=== PATIENT | male | born 1985 | race Caucasian/White ===

== ENCOUNTER → 2017-02-20 | Outpatient (CLI) | payer OTHER ==
[2014-11-02 02:43] VITALS: BP 133/75
--- NOTE | 2017-02-20 14:05 | RAD ---
Indication back pain for 3 days. AP and lateral views of the thoracic spine were obtained. There is very minimal scoliosis. Vertebral height and alignment are normal. No significant bony finding is seen. IMPRESSION: No significant bony finding seen
== END | disposition home or self-care (01) ==
LOC: DXRADRC 11:34
PROVIDERS: ATTEND Physician Assistant
DX: M54.6 Pain in thoracic spine (principal)
CPT/HCPCS: 72072

== ENCOUNTER 2021-05-07 00:22 | Emergency (ER) | payer OTHER ==
[~2021-05-07] VITALS: Ht 180.3 cm; Wt 79.1 kg
--- NOTE | 2021-05-07 00:33 | PHYS DOC ---
Past History Past Medical History: No Pertinent History Past Surgical History: No Surgical History Alcohol Use: None Drug Use: None Adult General Chief Complaint Chief Complaint: ALTERED MENTAL STATUS HPI HPI Patient is a 36-year-old male who presents from home via EMS for altered mental status. Per EMS family called them stating that they think he took a handful of Ambien at home because he was laying in bed asleep and they could not wake him up. Patient's says he has been having trouble sleeping recently and his sister gave him 5-10 mg Ambien to help sleep. states that patient that he was supposed to take all 5 and did. States that he fell asleep and everybody was having a hard time waking him up so she called EMS. Denies any other alcohol or drug use. Review of Systems Review of Systems Review of systems otherwise unremarkable except noted in medical decision making Allergies Allergies Allergies Coded Allergies Type Severity Reaction Last Updated Verified Sulfa (Sulfonamide Antibiotics) Allergy Unknown rash 11/02/14 No Physical Exam Physical Exam Constitutional: Well developed, well nourished, no acute distress, non-toxic appearance. [] HENT: Normocephalic, atraumatic, bilateral external ears normal, oropharynx moist, no oral exudates, nose normal. [] Eyes: Pupils 5 mm bilaterally and reactive, conjunctiva normal, no discharge. [] Neck: Normal range of motion, no tenderness, supple, no stridor. [] Cardiovascular:Heart rate regular rhythm, no murmur [] Lungs & Thorax: Bilateral breath sounds clear to auscultation [] Abdomen: soft, no tenderness, no masses, no pulsatile masses. [] Skin: Warm, dry, no erythema, no rash. [] Back: No tenderness, no obvious deformities, bruising Extremities: No tenderness, no cyanosis, no clubbing, ROM intact, no edema. [] Neurologic: GCS of 13 (E3, V4, M6), moving all extremities grossly, responded to touch on all extremities, wiggle toes on command, squeezed hands on command Psychologic: Affect sleepy, judgement and normal, EKG EKG [] Radiology/Procedures Radiology/Procedures [] Heart Score C/O Chest Pain: No Risk Factors: Risk Factors: DM, Current or recent (<one month) smoker, HTN, HLP, family history of CAD, obesity. Risk Scores: Risk Factors: DM, Current or recent (<one month) smoker, HTN, HLP, family history of CAD, obesity. Course & Med Decision Making Course & Med Decision Making Patient is a 36-year-old male who presents from home via EMS for altered mental status, with a report of possible Ambien overdose Poison control called by both and ED staff who recommended basic labs with acetaminophen, and salicylate as well as EKG and observation out to 6 hours. Vital signs on arrival within normal limits. Blood sugar 107. Narcan administered with no effect. Romazicon administered with no effect. EKG noted above and not concerning. Troponin not concerning. Laboratory analysis not concerning. Toxicology not concerning. Patient placed on the monitor with IV access established and IV fluids started. Patient's stated that he did received 10 mg Ambien from his sister and thought he was supposed to take all [address] of the head not concerning. Patient ingested the Ambien somewhere between 10:30 PM and 11 PM last night and was allowed to sleep in the emergency department till about 4:30 AM upon which time patient woke up, and asked for something to drink and when he could go home. Patient allowed to wake up some more in the emergency department and drink a Coke without issue. Patient able to sit, stand and walk without issue. Had a discussion about taking medicines that were not prescribed to him as they were serious risks involved including but not limited to overdose, falling and injuring yourself. Advised to cease taking any pharmaceuticals that were not prescribed to him. Advised to follow-up with primary care physician first thing Saturday to discuss ED visit, his sleeping issues and desire to quit smoking cigarettes. Gave strict return precautions to the ED. Patient was grateful, verbalized understanding and agreed with plan of discharge. Dragon Disclaimer Dragon Disclaimer This electronic medical record was generated, in whole or in part, using a voice recognition dictation system. Departure Departure: Impression: Primary Impression: Accidental overdose Disposition: 01 HOME / SELF CARE / HOMELESS Condition: GOOD Referrals: ALEXIA SANFORD (PCP) Patient Instructions: Overdose, Accidental Additional Instructions: Please read all of the attached information very carefully. As discussed, please do not take any pharmaceuticals, medicines or supplements that have not been either prescribed or recommended by your physician. Please call your primary care physician first thing Oscar morning to update on your ED visit, your sleep issues and your desire to quit smoking. Please come back to the emergency department immediately with any new or concerning symptoms as discussed. CAMILA AUGUSTINE MD May 07, 2021 00:33
[2021-05-07] MEDS ORDERED: IV RINGERS SOLUTION,LACTATED 1,000 ML IV ONE ×2 (00:45→02:45)
[2021-05-07 01:04] LABS: BASO # 0.1 x10^3/uL (0.0-0.2); BASO % 1 % (0-3); EOS # 0.1 x10^3/uL (0.0-0.7); EOS % 1 % (0-3); HEMATOCRIT 40.9 % (39.0-53.0); HEMOGLOBIN 13.9 g/dL (13.0-17.5); LYMPH # 1.9 x10^3/uL (1.0-4.8); LYMPH % 26 % (24-48); MEAN CORPUSCULAR HEMOGLOBIN 30 pg (25-35); MEAN CORPUSCULAR HGB CONC 34 g/dL (31-37); MEAN CORPUSCULAR VOLUME 89 fL (79-100); MONO # 0.3 x10^3/uL (0.0-1.1); MONO % 4 % (0-9); NEUT # 5.1 x10^3uL (1.8-7.7); NEUT % 68 % (31-73); PLATELET COUNT 217 x10^3/uL (140-400); RED BLOOD COUNT 4.61 x10^6/uL (4.30-5.70); RED CELL DISTRIBUTION WIDTH 13.7 % (11.5-14.5); WHITE BLOOD COUNT 7.6 x10^3/uL (4.0-11.0)
[2021-05-07 01:25] LABS: ACETAMIN < 2.0 mcg/mL (10-30); ETHANOL < 10 mg/dL (0-10); SALIC < 2.8 mg/dL (2.8-20.0)
[2021-05-07 01:29] LABS: ALBUMIN 3.9 g/dL (3.4-5.0); ALBUMIN/GLOBULIN RATIO 1.6 (1.0-1.7); CALCIUM 8.9 mg/dL (8.5-10.1); CREATININE 1.1 mg/dL (0.7-1.3); GFR 76.6; POTASSIUM 4.1 mmol/L (3.5-5.1); TOTAL BILIRUBIN 0.2 mg/dL (0.2-1.0); TOTAL PROTEIN 6.4 g/dL (6.4-8.2)
--- NOTE | 2021-05-07 01:41 | RAD ---
CT head without contrast: Reason for examination: Altered mental status with nausea and vomiting. Helical images were obtained through the brain with no contrast administered. Exposure: One or more of the following individualized dose reduction techniques were utilized for thi s examination: 1. Automated exposure control 2. Adjustment of the mA and/or kV according to patient size 3. Use of iterative reconstruction technique. Ventricular systems are symmetric and not dilated. No midline shift is seen. There is no evidence of intracranial hemorrhage, infarct, mass or edema. No abnormalities of seen at the orbits. The paranasa l sinuses and mastoid air cells are clear. No acute skull abnormality is seen. IMPRESSION: No acute intracranial abnormality evident. Electronically signed by: Ila Gomez MD (05/07/2021 1:39 AM) [facility]
[2021-05-07 01:50] LABS: BARBITURATES NEG (NEG); BENZODIAZEPINES NEG (NEG); CANNABINOIDS NEG (NEG); COCAINE NEG (NEG); METHADONE NEG (NEG); OPIATES NEG (NEG); PHENCYCLIDINE NEG (NEG)
[2021-05-07 01:52] VITALS: BP 99/58
[2021-05-07 01:52] LABS: AMPHETAMINE/METHAMPHETAMINE NEG (NEG)
--- NOTE | 2021-05-07 02:47 | EKG ---
[address] [address] Test Date: 2021-05-07 Test Time: 01:13:04 Pat Name: LEE SOLIMAN Department: Room: Gender: M [employer] Material: : 1985 Requested By: CAMILA AUGUSTINE Order Number: [id number] Reading MD: Measurements Intervals [place] Rate: 58 P: 64 GA: 172 QRS: 77 QRSD: 100 T: 64 QT: 390 QTc: 386 Interpretive Statements SINUS RHYTHM INCOMPLETE RIGHT BUNDLE BRANCH BLOCK OTHERWISE NORMAL ECG RI6.02 No previous ECG available for comparison
== END 2021-05-07 04:51 | disposition home or self-care (01) ==
LOC: ER 00:26
DX: T42.6X1A Poisoning by other antiepileptic and sedative-hypnotic drugs, accidental (unintentional), initial encounter (principal); R41.82 Altered mental status, unspecified; Y92.89 Other specified places as the place of occurrence of the external cause
CPT/HCPCS: 36415; 70450; 80053; 80307; 80329; 82947; 83690; 84484; 85025; 93005; 96360; 96361; 99285; G0480; J7120